=== PATIENT | female | born 1980 | race Caucasian/White ===

== ENCOUNTER 2016-10-31 14:04 | Day surgery (SDC) | payer MEDICAID ==
--- NOTE | 2016-10-24 09:33 | EKG REPORT ---
SEVERITY:- NORMAL ECG - SINUS RHYTHM : Confirmed by: Corinne Mensah 24-Oct-2016 09:32:41
[2016-10-24 11:01] LABS: ABSOLUTE EOSINOPHILS # (AUTO) 0.1 10^3/uL (0.0-0.6); ABSOLUTE LYMPHOCYTES (AUTO) 1.2 10^3/uL (0.5-4.7); ABSOLUTE MONOCYTES (AUTO) 0.6 10^3/uL (0.1-1.4); ABSOLUTE NEUT (AUTO) 4.3 10^3/uL (1.7-8.2); BASOPHILS % (AUTO) 0.7 % (0-2); HEMATOCRIT 37.1 % (36.0-47.0); HEMOGLOBIN 11.8 g/dL (12.0-15.5); HGB HCT DIFFERENCE -1.7; LYMPHOCYTES % (AUTO) 19.6 % (13-45); MEAN CORPUSCULAR HGB CONC 31.9 g/dL (32.0-36.0); MEAN CORPUSCULAR VOLUME 85 fl (80-97); MONOCYTES % (AUTO) 9.5 % (3-13); RED BLOOD COUNT 4.37 10^6/uL (3.72-5.28); RED CELL DISTRIBUTION WIDTH 17.6 % (11.5-14.0); SEGMENTED NEUTROPHILS % (AUTO) 69.2 % (42-78); WHITE BLOOD COUNT 6.2 10^3/uL (4.0-10.5)
[2016-10-24 11:18] LABS: APPEARANCE,URINE SLIGHTLY-CLOUDY; BILIRUBIN,URINE NEGATIVE (NEGATIVE); GLUCOSE, URINE NEGATIVE (NEGATIVE); KETONES,URINE NEGATIVE (NEGATIVE); LEUKOCYTE ESTERASE,URINE NEGATIVE (NEGATIVE); NITRITE,URINE NEGATIVE (NEGATIVE); PROTEIN,URINE NEGATIVE (NEGATIVE); URINE SPECIFIC GRAVITY 1.023; UROBILINOGEN,URINE NEGATIVE mg/dL (<2.0)
[2016-10-24 11:32] LABS: ANION GAP 14 (5-19); BLOOD UREA NITROGEN 18 mg/dL (7-20); CALCIUM 9.6 mg/dL (8.4-10.2); CARBON DIOXIDE 24 mmol/L (22-30); CHLORIDE 104 mmol/L (98-107); CREATININE RESULT 0.85 mg/dL (0.52-1.25); GLUCOSE 96 mg/dL (75-110); SODIUM 141.6 mmol/L (137-145)
[~2016-10-31 14:04] MED LIST: CEFAZOLIN 2 GM/D5W RTU 2 GM/50 ML RTUPB IV PRN; CEFAZOLIN INJ 1 GM VIAL IV PRN; DEXAMETHASONE SOD PHOSPHATE INJ 4 MG/1 ML VIAL ONE; GLYCOPYRROLATE INJ 0.4 MG/2 ML VIAL ONE; LACTATED RINGERS 1000 ML IV PRN; LIDOCAINE 0.5% INJ-PF (5 MG/ML) 50 ML SDV SUBCUT PRN; LIDOCAINE 2% INJ-PF (20 MG/ML) 10 ML AMPUL ONE; METOCLOPRAMIDE HCL INJ/PF 10 MG/2 ML SDV ONE; ONDANSETRON HCL INJ/PF 4 MG/2 ML SDV ONE
[2016-10-31] MEDS ORDERED: BUPIVACAINE HCL 0.25 % INJ/PF (2.5 MG/1 ML) 30 ML VIAL ONE (15:05)
[2016-10-31] MEDS ORDERED: FENTANYL CITRATE INJ/PF 250 MCG/5 ML AMPULE ONE (15:26)
[2016-10-31] MEDS ORDERED: MIDAZOLAM 2 MG/2 ML INJ ONE (15:26)
[2016-10-31] MEDS ORDERED: PROPOFOL INJ 200 MG/20 ML VIAL IV ONE (15:27)
[2016-10-31] MEDS ORDERED: ACETAMINOPHEN 100 ML IV ONE (15:27)
--- NOTE | 2016-10-31 16:34 | PDOC DISCHARGE SUMMARY ---
Discharge Summary (SDC) - Discharge Final Diagnosis: Excision ganglion cyst left foot Date of Surgery: 10/31/16 Discharge Date: 10/31/16 Condition: Good Treatment or Instructions: Keep the dressing dry clean and intact for 4 days then removed. Okay to shower once dressing removed. No soaking or bathing of the left foot. Weight-bear as tolerated. Follow-up in the office in 2 weeks. Prescriptions: Tramadol HCl 50 mg PO BID PRN #20 tablet PRN Reason: For Pain Discharge Diet: As Tolerated Respiratory Treatments at Home: Deep Breathing/Coughing Discharge Activity: Keep Legs Elevated, No Lifting/Push/Pulling, Slowly Increase Activity Home Care Assistance: None Needed Report the Following to Your Physician Immediately: Shortness of Breath, Nausea , Vomiting, Increase in Pain, Fever over 101 Degrees, Unusual Bleeding, Redness , Warmth, Increased Soreness, Drainage-Yellow, Drainage-Green, Drainage-Foul Smelling
[2016-10-31] MEDS ORDERED: TRAMADOL HCL 50 MG TABLET PO PRN (16:42)
[2016-10-31 18:09] VITALS: BP 141/97
--- NOTE | 2016-11-07 14:57 | Operative Report ---
Operative Report DATE OF SURGERY: 10/31/16 PREOPERATIVE DIAGNOSIS: Symptomatic ganglion cyst left foot POSTOPERATIVE DIAGNOSIS: Same OPERATION: Excision ganglion cyst of left foot SURGEON: KAMRAN MCCORMICK ANESTHESIA: GA TISSUE REMOVED OR ALTERED: Ganglion cyst left foot COMPLICATIONS: None ESTIMATED BLOOD LOSS: 5 mL INTRAOPERATIVE FINDINGS: As above PROCEDURE: Patient was brought to the operating room and successfully induced and sedated and intubated in the supine position left foot and ankle and was prepped and draped in a normal sterile surgical fashion. A tourniquet had been applied in her thigh prior to doing this. She was prepped and draped in a normal sterile surgical fashion and then timeout was done identifying the left medial calcaneal cyst as the mass to be removed and the correct site. Esmarch was used to exsanguinate the extremity and the tourniquet was inflated at 300 mmHg. A 1 inch incision horizontally was done over the palpable mass on the cyst on the calcaneus. Skin hooks were used for retraction and then Metzenbaum scissors was used to spread expose the cyst better. I perforated the cyst and ganglion fluid deflated the cyst. I was able still to delineate the cyst and remove it almost in its entirety. This was sent to pathology for evaluation. I used a rongeur to make sure that there was no remaining cyst adjacent to the calcaneus. I used 3-0 nylon then to close my wound after using bulb irrigation to clean the wound. I placed a bulky dressing 4 x 4 dressing and overwrapped it with a soft roll and Miquel bandage. Tourniquet was deflated and the patient with a was extubated and sent to PACU in stable condition.
== END 2016-10-31 18:05 | disposition home or self-care (01) ==
LOC: OROUT 14:04
PROVIDERS: ATTEND Orthopaedic Surgery
PROC: 0SBJ0ZZ Excision of Left Tarsal Joint, Open Approach (ICD-10-PCS; principal; 2016-10-31 15:00)
DX: M67.472 Ganglion, left ankle and foot (principal); F17.210 Nicotine dependence, cigarettes, uncomplicated; Z88.2 Allergy status to sulfonamides
CPT/HCPCS: 93005; 36415; 85025; 81025; 80048; 81001; 88304 ×2; 71020; 93010; 28090; J2250; J1100; J3010; J3490 ×2; J2765; J2405; S0020; J2704; J0690; J0131; 1470

== ENCOUNTER 2017-04-21 11:57 | Emergency (ER) | payer MEDICAID ==
[2017-04-21 14:14] LABS: APPEARANCE,URINE CLEAR; BILIRUBIN,URINE NEGATIVE (NEGATIVE); GLUCOSE, URINE NEGATIVE (NEGATIVE); KETONES,URINE NEGATIVE (NEGATIVE); LEUKOCYTE ESTERASE,URINE NEGATIVE (NEGATIVE); NITRITE,URINE NEGATIVE (NEGATIVE); PROTEIN,URINE NEGATIVE (NEGATIVE); URINE SPECIFIC GRAVITY 1.008; UROBILINOGEN,URINE NEGATIVE mg/dL (<2.0)
--- NOTE | 2017-04-21 14:24 | ER Document Report ---
HPI - HPI Patient complains to provider of: Positive test and vaginal bleeding Onset: Other Onset/Duration: Sudden Quality of pain: Cramping Severity: Mild Pain Level: 2 Context: Patient states she had a positive test at home 3 days ago. Bleeding and cramps began this morning. Has passed a couple of small clots. States last menstrual period was 03/17/2017, lasting 3 days. She states this is not her normal cycle. Associated Symptoms: None Exacerbated by: Denies Relieved by: Denies Similar symptoms previously: No Recently seen / treated by doctor: No - ROS ROS below otherwise negative: Yes Systems Reviewed and Negative: Yes All other systems reviewed and negative - CONSTITUTIONAL Constitutional: DENIES: Fever - EENT EENT: DENIES: Congestion - NEURO Neurology: DENIES: Headache - CARDIOVASCULAR Cardiovascular: DENIES: Chest pain - RESPIRATORY Respiratory: DENIES: Trouble Breathing - GASTROINTESTINAL Gastrointestinal: REPORTS: Abdominal Pain - Cramping. DENIES: Nausea, Patient vomiting - URINARY Urinary: REPORTS: Dysuria - REPRODUCTIVE Reproductive: REPORTS: :, Abnormal bleeding / discharge - MUSCULOSKELETAL Musculoskeletal: DENIES: Extremity pain - DERM Skin Color: Normal Past Medical History - General Information source: Patient - Social History Smoking Status: Current Every Day Smoker Cigarette use (# per day): Yes Frequency of alcohol use: Occasional Drug Abuse: None Lives with: Spouse/Significant other Family History: Reviewed & Not Pertinent Neurological Medical History: Reports: Hx Migraine Renal/ Medical History: Reports: Hx Ovarian Cysts Musculoskeltal Medical History: Reports Hx Arthritis - hands Past Surgical History: Reports: Hx Orthopedic Surgery - Immunizations Immunizations up to date: Yes Hx Diphtheria, Pertussis, Tetanus Vaccination: Yes Vertical Provider Document - CONSTITUTIONAL Agree With Documented VS: Yes Exam Limitations: No Limitations General Appearance: WD/WN, No Apparent Distress - INFECTION CONTROL TRAVEL OUTSIDE OF THE [place] IN LAST 30 DAYS: No - HEENT HEENT: Atraumatic, Normocephalic - RESPIRATORY Respiratory: Breath Sounds Normal, No Respiratory Distress O2 Sat by Pulse Oximetry: 100 - CARDIOVASCULAR Cardiovascular: Regular Rate, Regular Rhythm - GI/ABDOMEN Gastrointestinal: Abdomen Soft, Abdomen Tender - Across lower abdomen, Normal Bowel Sounds - MUSCULOSKELETAL/EXTREMETIES Musculoskeletal/Extremeties: MAEW - NEURO Level of Consciousness: Awake, Alert, Appropriate - DERM Integumentary: Warm, Dry Course - Re-evaluation Re-evalutation: 04/21/17 19:21 Results of labs and ultrasound were discussed with patient and spouse. Patient instructed to return in 48 hours for repeat quant level. - Vital Signs Vital signs: Temp Pulse Resp BP Pulse Ox 98.9 F 86 136/88 H 100 04/21/17 12:08 04/21/17 12:08 04/21/17 12:08 04/21/17 12:08 - Laboratory Result Diagrams: 04/21/17 14:45 04/21/17 14:45 Laboratory results interpreted by me: 04/21/17 12:59 Urine Blood LARGE H Discharge - Discharge Clinical Impression: Vaginal bleeding Condition: Good Disposition: HOME, SELF-CARE Additional Instructions: Tylenol as needed for lower abdominal pain/cramping Return in 48 hours for repeat quant level, earlier if any problems Follow-up with your primary care physician tomorrow for possible VIRTUALIZATION ENGINEER referral Forms: Follow-Up Laboratory Testing, Return to Work
[2017-04-21 15:02] LABS: ABSOLUTE EOSINOPHILS # (AUTO) 0.2 10^3/uL (0.0-0.6); ABSOLUTE LYMPHOCYTES (AUTO) 1.7 10^3/uL (0.5-4.7); ABSOLUTE MONOCYTES (AUTO) 0.5 10^3/uL (0.1-1.4); ABSOLUTE NEUT (AUTO) 5.2 10^3/uL (1.7-8.2); BASOPHILS % (AUTO) 0.3 % (0-2); EOSINOPHILS % (AUTO) 2.5 % (0-6); HEMOGLOBIN 12.3 g/dL (12.0-15.5); HGB HCT DIFFERENCE -0.1; LYMPHOCYTES % (AUTO) 22.6 % (13-45); MEAN CORPUSCULAR HEMOGLOBIN 28.1 pg (27.0-33.4); MEAN CORPUSCULAR HGB CONC 33.3 g/dL (32.0-36.0); MEAN CORPUSCULAR VOLUME 85 fl (80-97); MONOCYTES % (AUTO) 6.4 % (3-13); RED BLOOD COUNT 4.37 10^6/uL (3.72-5.28); RED CELL DISTRIBUTION WIDTH 16.4 % (11.5-14.0); SEGMENTED NEUTROPHILS % (AUTO) 68.2 % (42-78); WHITE BLOOD COUNT 7.6 10^3/uL (4.0-10.5)
[2017-04-21 15:28] LABS: ALANINE AMINOTRANSFERASE 35 U/L (9-52); ALBUMIN 4.1 g/dL (3.5-5.0); ALKALINE PHOSPHATASE 68 U/L (38-126); ANION GAP 9 (5-19); ASPARTATE AMINO TRANSFERASE 24 U/L (14-36); BILIRUBIN,DIRECT 0.3 mg/dL (0.0-0.4); BILIRUBIN,TOTAL 0.4 mg/dL (0.2-1.3); BLOOD UREA NITROGEN 9 mg/dL (7-20); CALCIUM 9.3 mg/dL (8.4-10.2); CARBON DIOXIDE 26 mmol/L (22-30); CHLORIDE 106 mmol/L (98-107); CREATININE RESULT 0.85 mg/dL (0.52-1.25); GLUCOSE 99 mg/dL (75-110); POTASSIUM 4.2 mmol/L (3.6-5.0); SODIUM 140.8 mmol/L (137-145)
--- NOTE | 2017-04-21 17:53 | RADIOLOGY REPORT (SQ) ---
EXAM DESCRIPTION: U/S NON-OB PELVIS TV W/O DOP COMPLETED DATE/TIME: 04/21/2017 5:44 pm REASON FOR STUDY: + preg test home, low quant level, vag bleeding COMPARISON: None. TECHNIQUE: Dynamic and static grayscale images acquired of the pelvis via transvaginal approach and recorded on PACS. Additional selected color Doppler and spectral images recorded. LIMITATIONS: Study is limited due to overlying bowel gas. FINDINGS: UTERUS: Contour normal. No mass. ENDOMETRIAL STRIPE: No focal or generalized thickening. No masses. CERVIX: No nabothian cysts. RIGHT OVARY: Right ovary was not visualized due to overlying bowel gas. LEFT OVARY: Left ovary was not visualized due to overlying bowel gas. FREE FLUID: None noted. OTHER: No other significant finding. MEASUREMENTS: UTERUS: 9.5 x 4.5 x 3.9 cm ENDOMETRIAL STRIPE: 6.6 mm RIGHT OVARY: Not visualized. LEFT OVARY: Not visualized. IMPRESSION: Limited study as noted above. No significant pelvic abnormalities were identified. TECHNICAL DOCUMENTATION: JOB ID: [id number] [facility]- All Rights Reserved
[2017-04-21 18:14] VITALS: BP 132/86
== END 2017-04-21 18:15 | disposition home or self-care (01) ==
LOC: ER 11:57
DX: O20.9 Hemorrhage in early pregnancy, unspecified (principal); O99.331 Smoking (tobacco) complicating pregnancy, first trimester; F17.210 Nicotine dependence, cigarettes, uncomplicated; Z3A.01 Less than 8 weeks gestation of pregnancy; Z87.42 Personal history of other diseases of the female genital tract
CPT/HCPCS: 36415; 76830; 80053; 81001; 84702; 85025; 99284

== ENCOUNTER → 2017-09-03 | Outpatient (CLI) | payer SELFPAY ==
--- NOTE | 2017-09-03 14:34 | RADIOLOGY REPORT (SQ) ---
EXAM DESCRIPTION: U/S OB 14+ TRNABD 1GES W/O DOP COMPLETED DATE/TIME: 09/03/2017 1:42 pm REASON FOR STUDY: Z34.82 ENCOUNTER FOR SUPRVSN OF NORMAL , SECOND TRIMESTER Z34.82 ENCOUNT ER FOR SUPRVSN OF NORMAL , SECOND TRI COMPARISON: None. TECHNIQUE: Transabdominal static and realtime grayscale images acquired of the pelvis. Additional se lected spectral and color Doppler images recorded. All images stored on PACs. LIMITATIONS: Limited visualization of the anatomy due to small size. FINDINGS: FETUS: EGA: 15 week 5 day. VIKRAM: 02/20/2018. FHR: 169 beats per minute. RENATO: Adequate amount. PLACENTA: Anterior. PRESENTATION: Cephalic. CERVICAL LENGTH: 2.7 cm. Closed. UTERUS: No masses. RIGHT ADNEXA: Ovary not identified. No adnexal free fluid. No adnexal masses. LEFT ADNEXA: Ovary not identified. No adnexal free fluid. No adnexal masses. FREE FLUID: None. OTHER: No other significant finding. IMPRESSION: LIVING INTRAUTERINE . ESTIMATED GESTATIONAL AGE:15 WEEK 5 DAY. Trimester of : Second trimester - 13 weeks 1 day to 27 weeks 6 days. TECHNICAL DOCUMENTATION: JOB ID: [id number] [employer]- All Rights Reserved Reading location - IP/workstation name: [email or web address]
== END ==
LOC: RAD 14:21
PROVIDERS: ATTEND Nurse Practitioner Women's Health
DX: Z34.82 Encounter for supervision of other normal pregnancy, second trimester (principal)
CPT/HCPCS: 76805

== ENCOUNTER 2017-10-23 22:18 | Outpatient (CLI) | payer MEDICAID ==
[2017-10-23 23:02] LABS: APPEARANCE,URINE SLIGHTLY-CLOUDY; BILIRUBIN,URINE NEGATIVE (NEGATIVE); COLOR,URINE YELLOW; GLUCOSE, URINE NEGATIVE (NEGATIVE); KETONES,URINE NEGATIVE (NEGATIVE); LEUKOCYTE ESTERASE,URINE NEGATIVE (NEGATIVE); NITRITE,URINE NEGATIVE (NEGATIVE); PROTEIN,URINE NEGATIVE (NEGATIVE); URINE SPECIFIC GRAVITY 1.023; UROBILINOGEN,URINE NEGATIVE mg/dL (<2.0)
[2017-10-23 23:17] LABS: URINE AMPHETAMINES SCREEN NEGATIVE; URINE BARBITURATES SCREEN NEGATIVE; URINE BENZODIAZEPINES SCREEN NEGATIVE; URINE COCAINE SCREEN NEGATIVE; URINE MARIJUANA (THC) SCREEN NEGATIVE; URINE METHADONE SCREEN NEGATIVE; URINE PHENCYCLIDINE SCREEN NEGATIVE
== END 2017-10-24 | disposition home or self-care (01) ==
LOC: LC 22:18
PROVIDERS: ATTEND Obstetrics & Gynecology Gynecology
PROC: 4A1HXCZ Monitoring of Products of Conception, Cardiac Rate, External Approach (ICD-10-PCS; principal; 2017-10-23)
DX: O99.612 Diseases of the digestive system complicating pregnancy, second trimester (principal); K52.9 Noninfective gastroenteritis and colitis, unspecified; O09.522 Supervision of elderly multigravida, second trimester; Z3A.22 22 weeks gestation of pregnancy
CPT/HCPCS: 80307; 81001

== ENCOUNTER 2018-01-04 09:52 | Outpatient (CLI) | payer MEDICAID ==
--- NOTE | 2018-01-04 10:56 | Non Stress Test Report ---
Non Stress Test Datetime Report Generated by CPN: 01/04/2018 10:56 DEMOGRAPHIC EGA NST: 32.5 INDICATION Indication for Study: Diabetes Mellitus; Ordered by Provider VITAL SIGNS Temperature - NST: 98.0 Pulse - NST: 94 RESP - NST: 16 NBPSYS NST: 112 NBPDIA NST: 69 MONITORING Monitor Explained: Monitor Explained; Test Explained; Patient Verbalized Understanding Time on Monitor: 01/04/2018 10:02 Time off Monitor: 01/04/2018 10:53 NST Duration: 51 NST INTERVENTIONS NST Interventions: PO Hydration; Reposition Patient Physician Notified NST: DR VANCE REVIEWED STRIP BABY A: [id number] BABY A Movement : Present Contraction Frequency : NONE FHR Baseline : 145 Accelerations : 15X15 Decelerations : None Variability : Moderate 6-25bpm NST Review: Meets Criteria for Reactive NST NST Review and Verified By : MISTY MILLARD RN NST Results: Reactive NST REPORT Report Trigger: Send Report
== END 2018-01-04 11:00 | disposition home or self-care (01) ==
LOC: LC 09:52 → EDSTATUS 10:18 → LC 11:00
PROVIDERS: ATTEND Obstetrics & Gynecology
PROC: 4A1HXCZ Monitoring of Products of Conception, Cardiac Rate, External Approach (ICD-10-PCS; principal; 2018-01-04)
DX: O24.913 Unspecified diabetes mellitus in pregnancy, third trimester (principal); Z79.4 Long term (current) use of insulin; O09.523 Supervision of elderly multigravida, third trimester; Z3A.32 32 weeks gestation of pregnancy
CPT/HCPCS: 59025; 82962

== ENCOUNTER 2018-01-07 11:20 | Outpatient (CLI) | payer MEDICAID ==
--- NOTE | 2018-01-07 12:07 | Non Stress Test Report ---
Non Stress Test Datetime Report Generated by CPN: 01/07/2018 12:06 DEMOGRAPHIC EGA NST: 33.1 INDICATION Indication for Study: Ordered by Provider MONITORING Monitor Explained: Monitor Explained; Test Explained; Patient Verbalized Understanding Time on Monitor: 01/07/2018 11:33 Time off Monitor: 01/07/2018 11:55 NST Duration: 22 NST INTERVENTIONS NST Interventions: PO Hydration; Reposition Patient Physician Notified NST: Dr Nelson BABY A: [id number] BABY A Movement : Present Contraction Frequency : 0 FHR Baseline : 135 Accelerations : 15X15 Decelerations : None Variability : Moderate 6-25bpm NST Review: Meets Criteria for Reactive NST NST Review and Verified By : MISTY MILLARD RN NSTrevor Results: Reactive NST REPORT Report Trigger: Send Report
== END 2018-01-07 11:55 | disposition home or self-care (01) ==
LOC: LC 11:20
PROVIDERS: ATTEND Student in an Organized Health Care Education/Training Program
PROC: 4A1HXCZ Monitoring of Products of Conception, Cardiac Rate, External Approach (ICD-10-PCS; principal; 2018-01-07)
DX: O24.913 Unspecified diabetes mellitus in pregnancy, third trimester (principal); Z79.4 Long term (current) use of insulin; O09.523 Supervision of elderly multigravida, third trimester; Z3A.33 33 weeks gestation of pregnancy
CPT/HCPCS: 59025

== ENCOUNTER 2018-01-11 10:32 | Outpatient (CLI) | payer MEDICAID | END 2018-01-11 11:10 | disposition home or self-care (01) | LOC: LC 10:32 | PROVIDERS: ATTEND Obstetrics & Gynecology | PROC: 4A1HXCZ Monitoring of Products of Conception, Cardiac Rate, External Approach (ICD-10-PCS; principal; 2018-01-11) | DX: O24.913 Unspecified diabetes mellitus in pregnancy, third trimester (principal); Z79.4 Long term (current) use of insulin; O09.523 Supervision of elderly multigravida, third trimester; Z3A.33 33 weeks gestation of pregnancy | CPT/HCPCS: 59025 ==

== ENCOUNTER 2018-01-30 12:52 | Outpatient (CLI) | payer MEDICAID ==
--- NOTE | 2018-01-30 13:05 | Non Stress Test Report ---
Non Stress Test Datetime Report Generated by CPN: 01/30/2018 13:04 DEMOGRAPHIC EGA NST: 33.5 INDICATION Indication for Study: Diabetes Mellitus; Ordered by Provider VITAL SIGNS Temperature - NST: 98.4 Pulse - NST: 77 RESP - NST: 16 NBPSYS NST: 105 NBPDIA NST: 66 MONITORING Monitor Explained: Monitor Explained; Test Explained; Patient Verbalized Understanding Time on Monitor: 01/11/2018 10:40 Time off Monitor: 01/11/2018 11:08 NST Duration: 28 NST INTERVENTIONS NST Interventions: PO Hydration; Reposition Patient Physician Notified NST: J CALVILLO, CNM BABY A: [id number] BABY A Movement : Present Contraction Frequency : NONE FHR Baseline : 140 Accelerations : 15X15 Decelerations : None Variability : Moderate 6-25bpm NST Review: Meets Criteria for Reactive NST NST Review and Verified By : Derek Smith RN NST Results: Reactive NST REPORT Report Trigger: Send Report
[2018-01-30 14:45] LABS: URINE AMPHETAMINES SCREEN NEGATIVE; URINE BARBITURATES SCREEN NEGATIVE; URINE BENZODIAZEPINES SCREEN NEGATIVE; URINE COCAINE SCREEN NEGATIVE; URINE MARIJUANA (THC) SCREEN NEGATIVE; URINE METHADONE SCREEN NEGATIVE; URINE PHENCYCLIDINE SCREEN NEGATIVE
[2018-01-30 15:57] LABS: APPEARANCE,URINE CLOUDY; BILIRUBIN,URINE NEGATIVE (NEGATIVE); COLOR,URINE YELLOW; GLUCOSE, URINE NEGATIVE (NEGATIVE); KETONES,URINE NEGATIVE (NEGATIVE); LEUKOCYTE ESTERASE,URINE TRACE (NEGATIVE); NITRITE,URINE NEGATIVE (NEGATIVE); PROTEIN,URINE NEGATIVE (NEGATIVE); URINE SPECIFIC GRAVITY 1.008; UROBILINOGEN,URINE NEGATIVE mg/dL (<2.0)
== END 2018-01-30 16:22 | disposition home or self-care (01) ==
LOC: LC 12:52
PROVIDERS: ATTEND Obstetrics & Gynecology
PROC: 4A1HXCZ Monitoring of Products of Conception, Cardiac Rate, External Approach (ICD-10-PCS; principal; 2018-01-30)
DX: O47.1 False labor at or after 37 completed weeks of gestation (principal); O09.523 Supervision of elderly multigravida, third trimester; O99.333 Smoking (tobacco) complicating pregnancy, third trimester; Z3A.36 36 weeks gestation of pregnancy
CPT/HCPCS: 59025; 80307; 81005

== ENCOUNTER 2018-02-08 18:58 | Inpatient (IN) | payer MEDICAID ==
[2018-02-08] MEDS ORDERED: ZOLPIDEM TARTRATE 5 MG TABLET PO PRN (19:33)
[2018-02-08] MEDS ORDERED: MAG HYDROX/AL HYDROX/SIMETH SUSP 30 ML UDCUP PO PRN (19:33)
[2018-02-08] MEDS ORDERED: RINGERS SOLUTION,LACTATED 1,000 ML IV PRN (19:33)
[2018-02-08] MEDS ORDERED: ACETAMINOPHEN 325 MG TABLET PO PRN (19:33)
[2018-02-08] MEDS ORDERED: RINGERS SOLUTION,LACTATED 1,000 ML IV ONE (19:33)
[2018-02-08] MEDS ORDERED: DINOPROSTONE 10 MG VAGINAL INSERT.SR PV ONE (19:33)
[2018-02-08 19:58] LABS: HEMATOCRIT 30.5 % (36.0-47.0); MEAN CORPUSCULAR HEMOGLOBIN 25.7 pg (27.0-33.4); MEAN CORPUSCULAR VOLUME 78 fl (80-97); PLATELET COUNT 229 10^3/uL (150-450); RED CELL DISTRIBUTION WIDTH 16.4 % (11.5-14.0); WHITE BLOOD COUNT 14.5 10^3/uL (4.0-10.5)
[2018-02-08] MEDS ORDERED: DINOPROSTONE 10 MG VAGINAL INSERT.SR ONE (20:53)
[2018-02-08 21:38] LABS: URINE AMPHETAMINES SCREEN NEGATIVE; URINE BARBITURATES SCREEN NEGATIVE; URINE BENZODIAZEPINES SCREEN NEGATIVE; URINE COCAINE SCREEN NEGATIVE; URINE MARIJUANA (THC) SCREEN NEGATIVE; URINE METHADONE SCREEN NEGATIVE; URINE PHENCYCLIDINE SCREEN NEGATIVE
[2018-02-08] MEDS ORDERED: INSULIN NPH (ISOPHANE), HUMAN 100 UNIT/ML 3 ML ONE (23:42)
[2018-02-08] MEDS: RINGERS SOLUTION,LACTATED 1,000 ML IV PRN (23:54)
[2018-02-09] MEDS: RINGERS SOLUTION,LACTATED 1,000 ML IV PRN (02:51)
--- NOTE | 2018-02-09 05:32 | Admission Physical ---
Datetime Report Generated by CPN: 02/09/2018 05:32 CURRENT ADMISSION Chief Complaint: Sent from OB Office for Evaluation and Treatment - Please Specify Chief Complaint Other: Sent from MFM office due to Elevated Dopplers, IUGR Indication for Induction: IUGR Admit Impression : Term, Intrauterine ; No Active Labor; Intact Membranes; Induction of Labor Admit Plan: Admit to Unit; Initiate Labor Induction Protocol ALLERGIES Medication Allergies: Yes Medication Allergies: Sulfa (Sulfonamide Antibiotics)/as child (01/30/2018); ibuprofen/SV/dizzy (01/30/2018); latex (01/30/2018) OBSTETRICAL HISTORY EDC: 02/24/2018 00:00 : 4 Para: 2 Term: 2 : 1 SAB: 0 IAB: 0 Ectopic: 0 Livin Cesareans: 0 VBACs: 0 Multiple Births: 0 Gestational Diabetes: Yes Rh Sensitization: No Incompetent Cervix: No ZANA: No Infertility: No ART Treatment: No Uterine Anomaly: No IUGR: Yes Hx Previous C/S: No Macrosomia: No Hx Loss/Stillborn: No PIH: No Hx : No Placenta Previa/Abruption: No Depression/PP Depression: No PTL/PROM: No Post Hemorrhage: No Current Procedures: Ultrasound; NST; Doppler Flow Study Obstetrical History Comments: g1 - 06/2009 41 weeks female epidural g2- 2002 22 weeks elective termination no fluid/ urinary anomaly g3 - 2005 40 weeks epidural male epidural g4 - current - A2GDM on insulin, IUGR, AMA, smoker, hypothyroid SEE RECORDS Alcohol: No Marijuana : No Cocaine: No Other Illicit Drugs: No Cigarettes: Current Everyday Smoker. 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: No Heart Disease: No Hosp/Surgery: Yes Autoimmune Disorder: No Anesthetic Complications: No Kidney Disease: No Abnormal Pap Smear: No Neuro/Epilepsy: No Psychiatric Disorders: No Other Medical Diseases: No Hepatitis/Liver Disease: No Significant Family History: No Varicosities/Phlebitis: No Trauma/Violence : No Thyroid Dysfunction: Yes Medical History Comments: gdm - insulin dependent, smoker, AMA, hypothyroid INFECTIOUS HISTORY Gonorrhea: No Genital Herpes: No Chlamydia: No Tuberculosis: No Syphilis: No Hepatitis: No HIV/AIDS Exposure: No Rash or Viral Illness: No HPV: No PHYSICAL EXAM General: Normal HEENT: Normal Neurologic: Normal Thyroid: Deferred Heart: Normal Lungs: Normal Breast: Deferred Back: Normal Abdomen: Normal Genitourinary Exam: Normal Extremities: Normal DTRs: Normal Pelvic Type: Adequate Vital Signs: Reviewed VAGINAL EXAM Dilatation: 0 Effacement: th Station: hi Contraction Comments: rare MEMBRANES Membranes: Intact FETUS A EGA: 37.6 Monitoring: External US FHR- Baseline: 155 Variability: Moderate 6-25bpm Accelerations: 15X15 Decelerations: None FHR Category: Category I Estimated Weight (gm): 2326 Presentation: Vertex Admit Comment: 37yo at 37+6ega admitted last evening from [facility] office due to IUGR with elevated cord dopplers and head sparing. c/b smoking and A2GDM on NPH [address] Wilson recommended her delivery in next 24 hours. unfavorable cervix - cervidil placed. Synthroid for hypothyroidism. Rh negative. GBS negative. anticipate . PLANS FOR LABOR AND DELIVERY Labor and Delivery: None Pain Management: Epidural Feeding Preference: Breast Benefit of Breast Feed Discussed: Yes Circumcision: N/A INFORMED CONSENT Informed Consent Obtained: Vaginal Delivery; Induction of Labor; Risks, Benefits and Alternatives Discussed Signature: with User ID: [email or web address]
--- NOTE | 2018-02-09 10:34 | L&D Progress Notes ---
PROGRESS NOTES Datetime Report Generated by CPN: 02/09/2018 10:34 PROGRESS NOTE Impression: Reassuring Heart Rate Procedures- Other: IOL for GDM-A2, cervidil removed Plan: Continue Present Management; Induction; Cervical Ripening Informed Consent Obtained: Vaginal Delivery Informed Consent Obtained: Vaginal Delivery; Induction of Labor; Risks, Benefits and Alternatives Discussed Vital Signs : Reviewed; Within Normal Limits VAGINAL EXAM Dilatation: 1 Dilatation: 0 Effacement: 50 Effacement: Station: -2 Station: vt Contractions: occasional, mild with irritability Contractions: rare MEMBRANES Membranes: Intact Membranes: Intact FETUS A Monitoring: External US Variability: Moderate 6-25bpm Accelerations: 15X15 Decelerations: None FHR Category: Category I Estimated Weight (gm): 2326 Presentation: Vertex SIGNATURE SIGNATURE: [id number];14,[id number];13,[id number] SIGNATURE: 13,[id number];14,[id number] SIGNATURE: 14,[id number] SIGNATURE: 14,[id number] SIGNATURE: 14,[id number] Assignment: Kandi Brody MD Signature: with User ID: [email or web address] : with User ID: [email or web address]
[2018-02-09] MEDS ORDERED: MISOPROSTOL 0.1 MG TABLET ONE (11:04)
[2018-02-09] MEDS ORDERED: MISOPROSTOL 0.2 MG TABLET ONE (11:04)
[2018-02-09] MEDS ORDERED: OXYTOCIN/NORMAL SALINE 20 UNIT/1,000 ML RTUINJ ONE (11:05)
[2018-02-09] MEDS ORDERED: LIDOCAINE 1% INJ-PF (10 MG/ML) 30 ML SDV ONE (11:05)
[2018-02-09] MEDS: MISOPROSTOL 0.1 MG TABLET PV SCH (11:15)
[2018-02-09] MEDS: MISOPROSTOL 0.1 MG TABLET PO SCH (11:15)
[2018-02-09] MEDS ORDERED: OXYTOCIN/NORMAL SALINE 20 UNIT/1,000 ML RTUINJ IV PRN ×2 (15:18→19:00)
--- NOTE | 2018-02-09 15:41 | L&D Progress Notes ---
PROGRESS NOTES Datetime Report Generated by CPN: 02/09/2018 15:40 PROGRESS NOTE Impression: Reactive Non Stress Test Procedures: Sterile Vag Exam Plan: Continue Present Management; Induction Vital Signs : Reviewed Comment: s/p Cytotec, Will start Pitocin, pt plans an epidural, then AROM once pt is comfortable. Dr Ronn aware of pt status VAGINAL EXAM Dilatation: 3 Effacement: 70 Station: -2 Contractions: q2-4 MEMBRANES Membranes: Intact FETUS A FHR - Baseline: 130 Variability: Moderate 6-25bpm Decelerations: None FHR Category: Category I SIGNATURE SIGNATURE: [id number];14,[id number];10,[id number] Assignment: Kandi Brody MD Signature: with User ID: [email or web address] : with User ID: [email or web address]
[2018-02-09] MEDS ORDERED: FENTANYL CITRATE INJ/PF 100 MCG/2 ML AMPUL ONE (17:13)
[2018-02-09] MEDS ORDERED: EPHEDRINE SULFATE INJ 50 MG/1 ML AMPULE ONE (17:14)
[2018-02-09] MEDS ORDERED: BUPIVACAINE HCL 0.25 % INJ/PF (2.5 MG/1 ML) 30 ML VIAL ONE (17:14)
[2018-02-09] MEDS ORDERED: PHENYLEPHRINE HCL INJ/PF 10 MG/1 ML SDV ONE (17:14)
[2018-02-09] MEDS ORDERED: LIDOCAINE 1.5%/EPINEPHRINE INJ-PF 30 ML SDV ONE (17:15)
[2018-02-09] MEDS ORDERED: FENTANYL/BUPIVACAINE/NS/PF 200 MCG/100 ML RTUINJ EPI ONE (17:15)
[2018-02-09] MEDS ORDERED: GLYCERIN/WITCH HAZEL LEAF 1 EACH MED..PAD TP PRN (19:00)
[2018-02-09] MEDS ORDERED: MAGNESIUM HYDROXIDE SUSP 30 ML UDCUP PO PRN (19:00)
[2018-02-09] MEDS ORDERED: ACETAMINOPHEN WITH CODEINE #3 TABLET PO PRN ×2 (19:00)
[2018-02-09] MEDS ORDERED: PROMETHAZINE HCL 25 MG TABLET PO PRN (19:00)
[2018-02-09] MEDS ORDERED: DIPHENHYDRAMINE HCL 25 MG CAPSULE PO PRN (19:00)
[2018-02-09] MEDS ORDERED: NA PHOS,M-B/NA PHOS,DI-BA (ADULT) 133 ML ENEMA PR PRN (19:00)
[2018-02-09] MEDS ORDERED: DIPH/PERTUSS(ACELL)/TETANUS VAC/PF 0.5 ML SYR (>=10YO) IM PRN (19:00)
[2018-02-09] MEDS ORDERED: BENZOCAINE/MENTHOL AEROSOL SPRAY 56 ML TOP PRN (19:00)
[2018-02-09] MEDS ORDERED: PSEUDOEPHEDRINE HCL 30 MG TABLET PO PRN (19:00)
[2018-02-09] MEDS ORDERED: ZOLPIDEM TARTRATE 5 MG TABLET PO PRN (19:00)
[2018-02-09] MEDS ORDERED: MEASLES,MUMPS&RUBELLA VACC/PF 0.5 ML VIAL SUBCUT PRN (19:00)
[2018-02-09] MEDS ORDERED: PROMETHAZINE HCL 25 MG SUPP.RECT PR PRN (19:00)
[2018-02-09] MEDS ORDERED: DIBUCAINE 1% OINTMENT 28 GM TP PRN (19:00)
[2018-02-09] MEDS ORDERED: ACETAMINOPHEN 650 MG SUPP.RECT PR PRN (19:00)
[2018-02-09] MEDS ORDERED: PROMETHAZINE HCL INJ 25 MG/1 ML VIAL IV PRN (19:00)
[2018-02-09] MEDS ORDERED: ACETAMINOPHEN 325 MG TABLET ONE (20:47)
--- NOTE | 2018-02-09 20:59 | Delivery Summary ---
Del Sum A-C Datetime Report Generated by CPN: 02/09/2018 20:59 DELIVERY PERSONNEL DELIVERY PERSONNEL: [id number] Delivery Doctor:: Dr. Brody Labor and Delivery Nurse:: Ema Landaverde RNapplication integration specialist Nurse:: NIKKI Vargas Tripe Scraper/S3B MULTI SENSOR OPERATOR: Ayeshagricelda Villareal, S3B MULTI SENSOR OPERATOR II MATERNAL INFORMATION Delivery Anesthesia: Epidural Medications After Delivery: Pitocin Drip 20 Units/1000ml NSS Estimated Blood Loss (ml): 200 Maternal Complications: None LABOR SUMMARY EDC: 02/24/2018 00:00 No. Babies in Womb: 1 Attempted: No Labor Anesthesia: Epidural LABOR INFORMATION Reason for Induction: Intrauterine Growth Retardation Onset of Labor: 02/09/2018 15:16 Complete Dilatation: 02/09/2018 18:20 Cervical Ripening Agents: Cervidil Oxytocin: Induction Group B Beta Strep: negative Antibiotics # of Doses: 0 Antibiotics Time of Last Dose: N/A Name of Antibiotic Given: N/A Steroids Given: None Reason Steroids Not Administered: Not Applicable Other Reason Not Administered: N/A MEMBRANES Membranes Rupture Method: Spontaneous Rupture of Membranes: 02/09/2018 17:00 Length of Rupture (hr): 1.48 Amniotic Fluid Color: Clear Amniotic Fluid Amount: Small Amniotic Fluid Odor: Normal STAGES OF LABOR Stage 1 hr: 3 Stage 1 min: 4 Stage 2 hr: 0 Stage 2 min: 9 Stage 3 hr: 0 Stage 3 min: 6 Total Time in Labor hr: 3 Total Time in Labor min: 19 VAGINAL DELIVERY Episiotomy: None Laceration #1: None Laceration Extension #1: N/A Laceration Repair: Not Applicable CSECTION DELIVERY Primary Indication: N/A Secondary Indication: N/A BABY A INFORMATION Infant Delivery Date/Time: 02/09/2018 18:29 Method of Delivery: Vaginal Born in Route : No : N/A Forceps: N/A Vacuum Extraction: N/A Shoulder Dystocia : No PRESENTATION/POSITION BABY A Presentation: Cephalic Cephalic Presentation: Vertex Vertex Position: Right Occipital Anterior Breech Presentation: N/A PLACENTA INFORMATION BABY A Placenta Delivery Time : 02/09/2018 18:35 Placenta Method of Delivery: Spontaneous Placenta Status: Delivered SCORES BABY A Heart Rate 1 min: >100 bpm Resp Effort 1 min: Good Cry Reflex Irritability 1 min: Cough or Sneeze or Pulls Away Muscle Tone 1 min: Active Motion Color 1 min: Body [place], Extremities Blue Resuscitation Effort 1 min: Tactile Stimulation SCORE 1 MIN: 9 Heart Rate 5 min: >100 bpm Resp Effort 5 min: Good Cry Reflex Irritability 5 min: Cough or Sneeze or Pulls Away Muscle Tone 5 min: Active Motion Color 5 min: Body [place], Extremities Blue Resuscitation Effort 5 min: Tactile Stimulation SCORE 5 MIN: 9 INFANT INFORMATION BABY A Gestational Age at Delivery: 37.6 Gestational Status: Early Term- 37- 38.6 Weeks Infant Outcome : Liveborn Infant Condition : Stable Infant Sex: Female IDENTIFICATION BABY A Verification Date/Time: 02/09/2018 18:56 ID Band Number: [id number] Mother's Name Verified: Yes RN Verifying : Elpidio Petersse and Ema Landaverde, RN WEIGHT/LENGTH BABY A Birthweight (gm): 2270 Weight (lb): 5 Infant Weight (oz): 0 Length (in): 18.00 Infant Length (cm): 45.72 CORD INFORMATION BABY A No. Cord Vessels: 3 Nuchal Cord : Around Neck x1, Loose Cord Blood Taken: Yes-For Eval (Mom's Blood Type - or O+) Suction: None ASSESSMENT BABY A Skin to Skin: Yes BABY B INFORMATION : N/A SIGNATURES Signature: with User ID: [email or web address]
[2018-02-10 07:37] LABS: HEMATOCRIT 29.7 % (36.0-47.0); HEMOGLOBIN 9.6 g/dL (12.0-15.5); MEAN CORPUSCULAR HEMOGLOBIN 25.6 pg (27.0-33.4); MEAN CORPUSCULAR HGB CONC 32.4 g/dL (32.0-36.0); MEAN CORPUSCULAR VOLUME 79 fl (80-97); PLATELET COUNT 190 10^3/uL (150-450); RED BLOOD COUNT 3.76 10^6/uL (3.72-5.28); RED CELL DISTRIBUTION WIDTH 16.3 % (11.5-14.0); WHITE BLOOD COUNT 13.1 10^3/uL (4.0-10.5)
[2018-02-10] MEDS: MISOPROSTOL 0.1 MG TABLET PO SCH (07:57)
[2018-02-10] MEDS: MISOPROSTOL 0.1 MG TABLET PV SCH (07:57)
[2018-02-10] MEDS: FAMOTIDINE 20 MG TABLET PO SCH ×2 (07:58→09:31)
[2018-02-10] MEDS: IBUPROFEN 800 MG TABLET PO SCH ×3 (07:58→13:06)
[2018-02-10] MEDS: LEVOTHYROXINE SODIUM 0.05 MG TABLET PO SCH (08:32)
[2018-02-10] MEDS: FERROUS SULFATE 325 MG TABLET PO SCH ×2 (09:31→18:02)
[2018-02-10] MEDS: DOCUSATE SODIUM 100 MG CAPSULE PO SCH ×2 (09:31→18:02)
[2018-02-10] MEDS: SENNOSIDES/DOCUSATE 8.6-50 MG 1 EACH TABLET PO SCH (09:31)
[2018-02-10] MEDS: PRENATAL VITAMIN W DHA CAPSULE PO SCH (09:31)
[2018-02-10] MEDS ORDERED: LEVOTHYROXINE SODIUM 0.05 MG TABLET PO SCH (10:00)
--- NOTE | 2018-02-10 11:08 | PDOC PROGRESS REPORT ---
Subjective-OB Progress Note for:: 02/10/18 Subjective: Pt doing well, no concerns. She reports light bleeding, reg diet and voiding without difficulty. Physical Exam (OB) Vital Signs: Temp Pulse Resp BP Pulse Ox 98.7 F 66 15 120/83 100 02/10/18 08:00 02/10/18 08:00 02/10/18 08:00 02/10/18 08:00 02/10/18 08:00 Intake & Output 02/09/18 02/10/18 02/11/18 06:59 06:59 06:59 Intake Total 369 Balance 369 Weight 81.647 kg - Lochia Lochia Amount: Small 10-25 ml Lochia Color: Rubra/Red - Abdomen Description: Soft, Round Hernia Present: No Fundal Description: Firm Fundal Height: u/u - u/2 Objective-Diagnostic Laboratory: 02/10/18 07:04 02/10/18 02/10/18 07:04 07:04 WBC 13.1 H RBC 3.76 Hgb 9.6 L Hct 29.7 L MCV 79 L MCH 25.6 L MCHC 32.4 RDW 16.3 H Plt Count 190 Blood Type A NEGATIVE Assessment and Plan(PN) - Assessment and Plan (1) Vaginal delivery Is this a current diagnosis for this admission?: Yes (2) Gestational diabetes mellitus in childbirth, insulin controlled Is this a current diagnosis for this admission?: Yes (3) Intrauterine growth restriction (IUGR) affecting care of mother Qualifiers: Fetus number: single or unspecified fetus Is this a current diagnosis for this admission?: Yes - Time Spent with Patient Time with patient: Less than 15 minutes Medications reviewed and adjusted accordingly: Yes - Disposition Anticipated Discharge: Home Within: within 24 hours
[2018-02-11] MEDS: FAMOTIDINE 20 MG TABLET PO SCH ×2 (00:53→09:23)
[2018-02-11] MEDS: LEVOTHYROXINE SODIUM 0.05 MG TABLET PO SCH (06:10)
[2018-02-11] MEDS: PRENATAL VITAMIN W DHA CAPSULE PO SCH (09:24)
[2018-02-11] MEDS: SENNOSIDES/DOCUSATE 8.6-50 MG 1 EACH TABLET PO SCH (09:24)
[2018-02-11] MEDS: FERROUS SULFATE 325 MG TABLET PO SCH (09:24)
[2018-02-11] MEDS: DOCUSATE SODIUM 100 MG CAPSULE PO SCH (09:24)
--- NOTE | 2018-02-11 11:49 | PDOC PROGRESS REPORT ---
Subjective-OB Progress Note for:: 02/11/18 Subjective: Doing well, ready to go home, voiding, eating well Physical Exam (OB) Vital Signs: Temp Pulse Resp BP Pulse Ox 98.8 F 76 18 137/91 H 100 02/11/18 09:07 02/11/18 09:07 02/11/18 09:07 02/11/18 09:07 02/11/18 09:07 Intake & Output 02/10/18 02/11/18 02/12/18 06:59 06:59 06:59 Intake Total 300 Balance 300 Weight 81.647 kg - Lochia Lochia Amount: Scant < 10 ml Lochia Color: Rubra/Red - Abdomen Description: Soft Hernia Present: No Fundal Description: Firm, Midline Fundal Height: u/u - u/2 Objective-Diagnostic Laboratory: 02/10/18 07:04 02/10/18 07:04 Blood Type A NEGATIVE Assessment and Plan(PN) - Assessment and Plan (1) Anemia Qualifiers: Anemia type: iron deficiency Is this a current diagnosis for this admission?: Yes (2) Vaginal delivery Is this a current diagnosis for this admission?: Yes (3) Intrauterine growth restriction (IUGR) affecting care of mother Qualifiers: Fetus number: single or unspecified fetus Trimester: third trimester Qualified Code(s): O36.5930 - Maternal care for other known or suspected poor growth, third trimester, not applicable or unspecified Is this a current diagnosis for this admission?: Yes (4) Gestational diabetes mellitus in childbirth, insulin controlled Is this a current diagnosis for this admission?: Yes - Time Spent with Patient Time with patient: Less than 15 minutes Medications reviewed and adjusted accordingly: Yes - Disposition Anticipated Discharge: Home Within: Other - home today
--- NOTE | 2018-02-11 11:52 | PDOC DISCHARGE SUMMARY ---
Final Diagnosis Discharge Date: 02/11/18 - Final Diagnosis (1) Anemia Is this a current diagnosis for this admission?: Yes (2) Vaginal delivery Is this a current diagnosis for this admission?: Yes (3) Intrauterine growth restriction (IUGR) affecting care of mother Is this a current diagnosis for this admission?: Yes Discharge Data - Discharge Medication Home Medications: Esomeprazole Magnesium [Nexium] 1 tab PO DAILY 01/04/18 Levothyroxine Sodium [Synthroid 0.05 mg Tablet] 0.05 mg PO Q6AM tablet Gestational Age: 37.6 Reason(s) for Admission: Induction of Labor, Gestional Diabetes, Advanced Maternal Age Admission Note: IUGR Procedures: NST, Ultrasound Intrapartum Procedure(s): Spontaneous Vaginal Delivery - [place] Data Baby 1 Female at 1 minute: 9 at 5 minutes: 9 Weight: 2.268 kg Home with Mother: Yes Complications: No - Diagnosis Test Laboratory: Temp Pulse Resp BP Pulse Ox 98.8 F 76 18 137/91 H 100 02/11/18 11:48 02/11/18 11:48 02/11/18 11:48 02/11/18 09:07 02/11/18 11:48 02/08/18 02/08/18 02/10/18 19:17 19:40 07:04 RBC 3.90 3.76 Hgb 10.0 L 9.6 L Hct 30.5 L 29.7 L Urine Opiates Screen NEGATIVE - Discharge information/Instructions Discharge Activity: Activity As Tolerated, No Lifting Over 10 Pounds, Pelvic Rest, No tub bath Discharge Diet: As Tolerated, Regular Disposition: HOME, SELF-CARE Follow up with: [facility] in: 1, Weeks
[2018-02-11 14:02] VITALS: BP 135/87
== END 2018-02-11 14:30 | disposition home or self-care (01) | DRG 775 ==
LOC: LR 18:58 → 2S 02-09 20:32
PROVIDERS: ADMIT Student in an Organized Health Care Education/Training Program; ATTEND Student in an Organized Health Care Education/Training Program
PROC: 4A1HXCZ Monitoring of Products of Conception, Cardiac Rate, External Approach (ICD-10-PCS; 2018-02-08)
PROC: 10E0XZZ Delivery of Products of Conception, External Approach (ICD-10-PCS; principal; 2018-02-09)
PROC: 3E033VJ Introduction of Other Hormone into Peripheral Vein, Percutaneous Approach (ICD-10-PCS; 2018-02-09)
PROC: 3E0P7VZ Introduction of Hormone into Female Reproductive, Via Natural or Artificial Opening (ICD-10-PCS; 2018-02-09)
PROC: 3E0234Z Introduction of Serum, Toxoid and Vaccine into Muscle, Percutaneous Approach (ICD-10-PCS; 2018-02-10)
DX: O24.424 Gestational diabetes mellitus in childbirth, insulin controlled (principal); O26.893 Other specified pregnancy related conditions, third trimester; O99.02 Anemia complicating childbirth; D50.9 Iron deficiency anemia, unspecified; O36.5930 Maternal care for other known or suspected poor fetal growth, third trimester, not applicable or unspecified; O99.284 Endocrine, nutritional and metabolic diseases complicating childbirth; E03.9 Hypothyroidism, unspecified; O99.334 Smoking (tobacco) complicating childbirth; O69.81X0 Labor and delivery complicated by cord around neck, without compression, not applicable or unspecified; Z79.4 Long term (current) use of insulin; Z67.11 Type A blood, Rh negative; Z88.2 Allergy status to sulfonamides; Z88.6 Allergy status to analgesic agent; Z91.040 Latex allergy status; Z3A.37 37 weeks gestation of pregnancy; Z37.0 Single live birth
CPT/HCPCS: 36415; 80307; 82962; 85027; 85461; 86592; 86850; 86900; 86901; 88307; 94760; J1815; J2370; J2590; J2790; J3010; J3490

== ENCOUNTER 2018-04-20 05:22 | Day surgery (SDC) | payer MEDICAID ==
[2018-04-19 12:43] LABS: APPEARANCE,URINE CLEAR; BILIRUBIN,URINE NEGATIVE (NEGATIVE); COLOR,URINE STRAW; GLUCOSE, URINE NEGATIVE (NEGATIVE); KETONES,URINE NEGATIVE (NEGATIVE); LEUKOCYTE ESTERASE,URINE TRACE (NEGATIVE); NITRITE,URINE NEGATIVE (NEGATIVE); PROTEIN,URINE NEGATIVE (NEGATIVE); URINE SPECIFIC GRAVITY 1.008; UROBILINOGEN,URINE NEGATIVE mg/dL (<2.0)
[2018-04-19 12:46] LABS: HEMATOCRIT 37.1 % (36.0-47.0); HEMOGLOBIN 12.2 g/dL (12.0-15.5); MEAN CORPUSCULAR HEMOGLOBIN 25.8 pg (27.0-33.4); MEAN CORPUSCULAR HGB CONC 32.8 g/dL (32.0-36.0); MEAN CORPUSCULAR VOLUME 79 fl (80-97); PLATELET COUNT 240 10^3/uL (150-450); RED BLOOD COUNT 4.71 10^6/uL (3.72-5.28); RED CELL DISTRIBUTION WIDTH 20.8 % (11.5-14.0); WHITE BLOOD COUNT 8.8 10^3/uL (4.0-10.5)
[2018-04-20] MEDS ORDERED: LIDOCAINE 2% INJ-PF (20 MG/ML) 10 ML AMPUL ONE (06:21)
[2018-04-20] MEDS ORDERED: MIDAZOLAM 2 MG/2 ML INJ ONE (06:22)
[2018-04-20] MEDS ORDERED: FENTANYL CITRATE INJ/PF 100 MCG/2 ML AMPUL ONE (06:22)
[2018-04-20] MEDS ORDERED: DEXAMETHASONE SOD PHOSPHATE INJ 4 MG/1 ML VIAL ONE (06:22)
[2018-04-20] MEDS ORDERED: ONDANSETRON HCL INJ/PF 4 MG/2 ML SDV ONE (06:22)
[2018-04-20] MEDS ORDERED: PROPOFOL INJ 200 MG/20 ML VIAL IV ONE (06:23)
[2018-04-20] MEDS ORDERED: ACETAMINOPHEN 1,000 MG/100 ML RTUPB IV ONE (06:23)
[2018-04-20] MEDS ORDERED: PROMETHAZINE HCL INJ 25 MG/1 ML VIAL IV PRN ×2 (07:56)
[2018-04-20] MEDS ORDERED: MORPHINE SULFATE 10 MG/ML INJ IV PRN (07:56)
[2018-04-20] MEDS ORDERED: FENTANYL CITRATE INJ/PF 100 MCG/2 ML AMPUL IV PRN ×3 (07:56)
[2018-04-20] MEDS ORDERED: DIPHENHYDRAMINE HCL 50 MG/ML VIAL IV PRN (07:56)
[2018-04-20] MEDS ORDERED: ONDANSETRON HCL INJ/PF 4 MG/2 ML SDV IV PRN (07:56)
[2018-04-20] MEDS ORDERED: MEPERIDINE HCL/PF INJ 25 MG/1 ML DISP.SYRIN IV PRN (07:56)
[2018-04-20] MEDS ORDERED: IBUPROFEN 800 MG TABLET PO PRN (08:26)
[2018-04-20] MEDS ORDERED: RINGERS SOLUTION,LACTATED 1,000 ML IV PRN (08:26)
[2018-04-20] MEDS ORDERED: OXYCODONE-ACETAMINOPHEN 5-325 MG TABLET PO PRN ×2 (08:26)
[2018-04-20] MEDS ORDERED: KETOROLAC TROMETHAMINE INJ/PF 30 MG/1 ML SDV IV PRN (08:26)
[2018-04-20] MEDS ORDERED: KETOROLAC TROMETHAMINE INJ/PF 30 MG/1 ML SDV ONE (08:30)
[2018-04-20] MEDS: FENTANYL CITRATE INJ/PF 100 MCG/2 ML AMPUL ONE ×3 (08:32→08:38)
--- NOTE | 2018-04-20 08:32 | Operative Report ---
Operative Report DATE OF SURGERY: 04/20/18 PREOPERATIVE DIAGNOSIS: Patient desires tubal ligation POSTOPERATIVE DIAGNOSIS: Same OPERATION: Laparoscopic bilateral tubal fulguration using bipolar cautery SURGEON: SERGIO WHITE ANESTHESIA: GA TISSUE REMOVED OR ALTERED: Fallopian tubes COMPLICATIONS: None ESTIMATED BLOOD LOSS: 10 cc INTRAOPERATIVE FINDINGS: Normal uterus tubes and ovaries PROCEDURE: Patient was taken the OR and placed in supine position. General anesthesia was induced. She is placed in dorsolithotomy position using Bobby stirrups. Her perineum vagina and abdomen were prepared and draped in sterile fashion. A sponge stick was placed in the vagina for manipulation of the uterus. An incision was made at the umbilicus natural umbilical defect was identified and dilated with Ana Maria clamp. This allowed a blunt port to be placed. Laparoscopy confirmed appropriate placement. The abdomen was insufflated with CO2 gas. View of the pelvis was good. Each fallopian tube was identified and followed out to its fimbriated end and then cauterized with bipolar cautery starting at the uterine cornu and moving 5 bites distally. At the end of the case the gas was allowed to escape from the abdomen. The scope and port were removed in unison. The fascia at the umbilicus was closed with a 2-0 Vicryl stitch and skin closed with a 4-0 undyed Vicryl stitch. The sponge stick was removed from the vagina. She was extubated in the OR. The patient was taken to recovery room in stable condition.
[2018-04-20] MEDS ORDERED: GLYCOPYRROLATE 1 MG/5 ML SYRINGE ONE (10:43)
[2018-04-20] MEDS ORDERED: VECURONIUM BROMIDE INJ 10 MG VIAL IV ONE (10:43)
[2018-04-20] MEDS ORDERED: NEOSTIGMINE METHYLSULFATE 10 MG/10 ML VIAL ONE (10:43)
[2018-04-20] MEDS ORDERED: SUCCINYLCHOLINE CHLORIDE INJ 200 MG/10 ML VIAL ONE (10:43)
[2018-04-20 11:09] VITALS: BP 139/84
== END 2018-04-20 10:20 | disposition home or self-care (01) ==
LOC: OROUT 05:22
PROVIDERS: ATTEND Obstetrics & Gynecology
DX: Z30.2 Encounter for sterilization (principal); F17.210 Nicotine dependence, cigarettes, uncomplicated; E07.9 Disorder of thyroid, unspecified; D64.9 Anemia, unspecified; M19.049 Primary osteoarthritis, unspecified hand; Z79.899 Other long term (current) drug therapy; Z88.2 Allergy status to sulfonamides; Z88.6 Allergy status to analgesic agent; Z91.040 Latex allergy status
CPT/HCPCS: 36415; 85027; 81005; 81025; 58670; J2250; J1100; J3010; J3490 ×3; J1885; J0330; J2405; J2704; J0131

== ENCOUNTER 2018-07-01 18:28 | Emergency (ER) | payer SELFPAY ==
--- NOTE | 2018-07-01 21:07 | ER Document Report ---
ED Medical Screen (RME) - General Chief Complaint: Nausea/Vomiting Stated Complaint: NAUSEA, ABDOMINAL PAIN Time Seen by Provider: 07/01/18 20:58 Notes: Patient is a 37-year-old female who presents to the emergency department with nausea and abdominal cramping. Her cramping is in her lower abdomen. She states that she has had irregular vaginal bleeding. She only has about 4 days in between bleeding. Since she had her daughter back in January. She had a tubal ligation in February. She states that she has not had any vaginal bleeding today, but her nausea and abdominal cramping brought her here to emergency department. TRAVEL OUTSIDE OF THE [place] IN LAST 30 DAYS: No - Related Data Allergies/Adverse Reactions: ibuprofen [From Motrin] Allergy (Severe, Verified 07/01/18 18:36) dizzy Sulfa (Sulfonamide Antibiotics) Allergy (Unknown, Verified 07/01/18 18:36) as child latex Adverse Reaction (Mild, Verified 07/01/18 18:36) Past Medical History - Social History Chew tobacco use (# tins/day): No Frequency of alcohol use: Social Drug Abuse: None - Past Medical History Cardiac Medical History: Denies: Hx Coronary Artery Disease, Hx Heart Attack, Hx Hypertension Pulmonary Medical History: Denies: Hx Asthma, Hx Bronchitis, Hx COPD, Hx Pneumonia Neurological Medical History: Reports: Hx Migraine. Denies: Hx Cerebrovascular Accident, Hx Seizures Renal/ Medical History: Reports: Hx Ovarian Cysts. Denies: Hx Peritoneal Dialysis Musculoskeltal Medical History: Reports Hx Arthritis - hands Past Surgical History: Reports: Hx Orthopedic Surgery - Immunizations Immunizations up to date: Yes Hx Diphtheria, Pertussis, Tetanus Vaccination: Yes History of Influenza Vaccine for 03/2017 - 08/2017 Season: Refused Physical Exam - Vital signs Vitals: Temp Pulse Resp BP Pulse Ox 98.7 F 102 H 14 160/112 H 98 07/01/18 18:39 07/01/18 18:39 07/01/18 18:39 07/01/18 18:39 07/01/18 18:39 - Abdominal Tenderness: Tender - Lower abdomen Course - Vital Signs Vital signs: Temp Pulse Resp BP Pulse Ox 98.7 F 102 H 14 160/112 H 98 07/01/18 18:39 07/01/18 18:39 07/01/18 18:39 07/01/18 18:39 07/01/18 18:39 Doctor's Discharge - Discharge Referrals: SKY MATAMOROS CIRC[facility] DISTRIBUTOR-C [Primary Care Provider] - Follow up as needed
[2018-07-01] MEDS ORDERED: ONDANSETRON 4 MG TAB.RAPDIS PO ONE (21:08)
[2018-07-01 21:23] LABS: ABSOLUTE BASOPHILS # (AUTO) 0.1 10^3/uL (0.0-0.2); ABSOLUTE EOSINOPHILS # (AUTO) 0.7 10^3/uL (0.0-0.6); ABSOLUTE LYMPHOCYTES (AUTO) 2.5 10^3/uL (0.5-4.7); ABSOLUTE MONOCYTES (AUTO) 0.7 10^3/uL (0.1-1.4); ABSOLUTE NEUT (AUTO) 9.1 10^3/uL (1.7-8.2); BASOPHILS % (AUTO) 0.5 % (0-2); EOSINOPHILS % (AUTO) 5.7 % (0-6); HEMATOCRIT 37.7 % (36.0-47.0); HEMOGLOBIN 12.4 g/dL (12.0-15.5); LYMPHOCYTES % (AUTO) 18.8 % (13-45); MEAN CORPUSCULAR HEMOGLOBIN 26.4 pg (27.0-33.4); MEAN CORPUSCULAR HGB CONC 32.8 g/dL (32.0-36.0); MEAN CORPUSCULAR VOLUME 81 fl (80-97); MONOCYTES % (AUTO) 5.3 % (3-13); PLATELET COUNT 274 10^3/uL (150-450); RED BLOOD COUNT 4.67 10^6/uL (3.72-5.28); RED CELL DISTRIBUTION WIDTH 14.9 % (11.5-14.0); SEGMENTED NEUTROPHILS % (AUTO) 69.7 % (42-78); TOTAL CELLS COUNTED % (AUTO) 100 %; WHITE BLOOD COUNT 13.1 10^3/uL (4.0-10.5)
[2018-07-01 21:34] LABS: APPEARANCE,URINE SLIGHTLY-CLOUDY; BILIRUBIN,URINE NEGATIVE (NEGATIVE); COLOR,URINE STRAW; GLUCOSE, URINE NEGATIVE (NEGATIVE); KETONES,URINE NEGATIVE (NEGATIVE); LEUKOCYTE ESTERASE,URINE TRACE (NEGATIVE); NITRITE,URINE NEGATIVE (NEGATIVE); PROTEIN,URINE NEGATIVE (NEGATIVE); URINE SPECIFIC GRAVITY 1.006; UROBILINOGEN,URINE NEGATIVE mg/dL (<2.0)
[2018-07-01 21:38] LABS: ALANINE AMINOTRANSFERASE 26 U/L (9-52); ALBUMIN 4.6 g/dL (3.5-5.0); ALKALINE PHOSPHATASE 100 U/L (38-126); ANION GAP 10 (5-19); ASPARTATE AMINO TRANSFERASE 29 U/L (14-36); BILIRUBIN,DIRECT 0.2 mg/dL (0.0-0.4); BILIRUBIN,TOTAL 0.3 mg/dL (0.2-1.3); BLOOD UREA NITROGEN 11 mg/dL (7-20); CALCIUM 10.1 mg/dL (8.4-10.2); CARBON DIOXIDE 27 mmol/L (22-30); CHLORIDE 101 mmol/L (98-107); GLUCOSE 111 mg/dL (75-110); LIPASE 101.3 U/L (23-300); SODIUM 137.8 mmol/L (137-145); TOTAL PROTEIN 7.8 g/dL (6.3-8.2)
--- NOTE | 2018-07-01 22:30 | ER Document Report ---
ED General - General Chief Complaint: Nausea/Vomiting Stated Complaint: NAUSEA, ABDOMINAL PAIN Time Seen by Provider: 07/01/18 20:58 TRAVEL OUTSIDE OF THE [place] IN LAST 30 DAYS: No - HPI Notes: Patient is a 37-year-old female that presents to the emergency department for chief complaint of abdominal pain and vomiting. Patient reports epigastric abdominal pain that began today. she states it feels like "a rock" sitting in her stomach. The pain is intermittent and worse when she is vomiting. She denies any aggravating or relieving factors. She has been able to drink liquids. She denies any diarrhea. She does endorse some lower abdominal cramping as well. She has a history of tubal ligation and irregular menses. She denies any vaginal bleeding. Patient denies fevers, chills, chest pain and shortness of breath. Past Medical History: Migraines Past Surgical History: Tubal ligation Social History: Daily tobacco, alcoholic beverage 3-4 times a week, denies drug use Family History: Reviewed and noncontributory for presenting illness Allergies: Reviewed, see documented allergy list. REVIEW OF SYSTEMS: CONSTITUTIONAL : No fever No chills No diaphoresis No recent illness EENT: No vision changes No congestion No sore throat CARDIOVASCULAR: No chest pain No palpitations RESPIRATORY: No shortness of breath No cough No difficulty breathing GASTROINTESTINAL: abdominal pain nausea vomiting No diarrhea GENITOURINARY: No dysuria No hematuria No difficulty urinating MUSCULOSKELETAL: No back pain No leg pain No arm pain SKIN: No rashes No lesions LYMPHATIC: No swollen, enlarged glands. NEUROLOGICAL: No lightheadedness No headache No weakness No paresthesias PSYCHIATRIC: No anxiety No depression PHYSICAL EXAMINATION: Vital signs reviewed, nursing noted reviewed. GENERAL: Well-appearing, well-nourished and in no acute distress. HEAD: Atraumatic, normocephalic. EYES: Eyes appear normal, extraocular movements intact, sclera anicteric, conjunctiva are normal. ENT: nares patent, oropharynx clear without exudates. Mildly dry mucous membranes. NECK: Normal range of motion, supple without lymphadenopathy LUNGS: Breath sounds clear to auscultation bilaterally and equal. No wheezes rales or rhonchi. HEART: Tachycardic and regular rhythm without murmurs ABDOMEN: Soft, nontender, normoactive bowel sounds. No rebound, guarding, or rigidity. No masses appreciated. EXTREMITIES: Nontender, good range of motion, no pitting or edema. NEUROLOGICAL: No focal neurological deficits. Moves all extremities spontaneously Motor and sensory grossly intact on exam. PSYCH: Normal mood, normal affect. SKIN: Warm, Dry, normal turgor, no rashes or lesions noted on exposed skin - Related Data Allergies/Adverse Reactions: ibuprofen [From Motrin] Allergy (Severe, Verified 07/01/18 18:36) dizzy Sulfa (Sulfonamide Antibiotics) Allergy (Unknown, Verified 07/01/18 18:36) as child latex Adverse Reaction (Mild, Verified 07/01/18 18:36) Past Medical History - Social History Smoking Status: Current Every Day Smoker Chew tobacco use (# tins/day): No Frequency of alcohol use: Social Drug Abuse: None Family History: Reviewed & Not Pertinent Patient has suicidal ideation: No Patient has homicidal ideation: No - Past Medical History Cardiac Medical History: Denies: Hx Coronary Artery Disease, Hx Heart Attack, Hx Hypertension Pulmonary Medical History: Denies: Hx Asthma, Hx Bronchitis, Hx COPD, Hx Pneumonia Neurological Medical History: Reports: Hx Migraine. Denies: Hx Cerebrovascular Accident, Hx Seizures Renal/ Medical History: Reports: Hx Ovarian Cysts. Denies: Hx Peritoneal Dialysis Musculoskeletal Medical History: Reports Hx Arthritis - hands Past Surgical History: Reports: Hx Orthopedic Surgery - Immunizations Immunizations up to date: Yes Hx Diphtheria, Pertussis, Tetanus Vaccination: Yes Physical Exam - Vital signs Vitals: Temp Pulse Resp BP Pulse Ox 98.7 F 102 H 14 160/112 H 98 07/01/18 18:39 07/01/18 18:39 07/01/18 18:39 07/01/18 18:39 07/01/18 18:39 Course - Re-evaluation Re-evalutation: 07/01/18 22:27 Vitals reviewed. Nursing notes reviewed. Patient given Zofran and had significant symptomatic improvement. She states she is feeling much better. Her lab work is unremarkable. Urinalysis negative for or infection. Patient will be given a prescription for Zofran to take at home. Her abdominal exam is benign with no peritoneal signs and I do not feel further abdominal imaging is indicated. Patient will be referred to the [facility] for follow-up. She is in agreement with this plan. She will return for new or worsening symptoms. Laboratory 07/01/18 07/01/18 07/01/18 21:10 21:10 21:10 WBC 13.1 H RBC 4.67 Hgb 12.4 Hct 37.7 MCV 81 MCH 26.4 L MCHC 32.8 RDW 14.9 H Plt Count 274 Seg Neutrophils % 69.7 Lymphocytes % 18.8 Monocytes % 5.3 Eosinophils % 5.7 Basophils % 0.5 Absolute Neutrophils 9.1 H Absolute Lymphocytes 2.5 Absolute Monocytes 0.7 Absolute Eosinophils 0.7 H Absolute Basophils 0.1 Sodium 137.8 Potassium 4.0 Chloride 101 Carbon Dioxide 27 Anion Gap 10 BUN 11 Creatinine 0.91 Est GFR ( Amer) > 60 Est GFR (Non-Af Amer) > 60 Glucose 111 H Calcium 10.1 Total Bilirubin 0.3 Direct Bilirubin 0.2 Neonat Total Bilirubin Not Reportable Neonat Direct Bilirubin Not Reportable Neonat Indirect Bili Not Reportable AST 29 ALT 26 Alkaline Phosphatase 100 Total Protein 7.8 Albumin 4.6 Lipase 101.3 Serum HCG, Qual NEGATIVE Urine Color Urine Appearance Urine pH Ur Specific Stir[place] Urine Protein Urine Glucose (UA) Urine Ketones Urine Blood Urine Nitrite Urine Bilirubin Urine Urobilinogen Ur Leukocyte Esterase Urine WBC (Auto) Urine RBC (Auto) Squamous Epi Cells Auto Urine Mucus (Auto) Urine Ascorbic Acid 07/01/18 21:10 WBC RBC Hgb Hct MCV MCH MCHC RDW Plt Count Seg Neutrophils % Lymphocytes % Monocytes % Eosinophils % Basophils % Absolute Neutrophils Absolute Lymphocytes Absolute Monocytes Absolute Eosinophils Absolute Basophils Sodium Potassium Chloride Carbon Dioxide Anion Gap BUN Creatinine Est GFR ( Amer) Est GFR (Non-Af Amer) Glucose Calcium Total Bilirubin Direct Bilirubin Neonat Total Bilirubin Neonat Direct Bilirubin Neonat Indirect Bili AST ALT Alkaline Phosphatase Total Protein Albumin Lipase Serum HCG, Qual Urine Color STRAW Urine Appearance SLIGHTLY-CLOUDY Urine pH 6.0 Ur Specific Stirling 1.006 Urine Protein NEGATIVE Urine Glucose (UA) NEGATIVE Urine Ketones NEGATIVE Urine Blood NEGATIVE Urine Nitrite NEGATIVE Urine Bilirubin NEGATIVE Urine Urobilinogen NEGATIVE Ur Leukocyte Esterase TRACE H Urine WBC (Auto) 2 Urine RBC (Auto) 0 Squamous Epi Cells Auto 7 Urine Mucus (Auto) RARE Urine Ascorbic Acid NEGATIVE - Vital Signs Vital signs: Temp Pulse Resp BP Pulse Ox 98.7 F 102 H 14 160/112 H 98 07/01/18 18:39 07/01/18 18:39 07/01/18 18:39 07/01/18 18:39 07/01/18 18:39 - Laboratory Result Diagrams: 07/01/18 21:10 07/01/18 21:10 Laboratory results interpreted by me: 07/01/18 07/01/18 07/01/18 21:10 21:10 21:10 WBC 13.1 H MCH 26.4 L RDW 14.9 H Absolute Neutrophils 9.1 H Absolute Eosinophils 0.7 H Glucose 111 H Ur Leukocyte Esterase TRACE H Discharge - Discharge Clinical Impression: Elevated blood pressure reading Abdominal pain Qualifiers: Abdominal location: unspecified location Qualified Code(s): R10.9 - Unspecified abdominal pain Condition: Stable Disposition: HOME, SELF-CARE Instructions: Abdominal Pain ([facility]) Additional Instructions: Please return to the emergency department if you have any worsening, or concern of your symptoms. Please return to the emergency department if you develop chest pain, difficulty breathing, severe abdominal pain, or ongoing vomiting. Please follow-up with your primary care physician in 2-3 days and any other recommended physicians. If prescribed, take all medications as directed. If you have any questions or concerns do not hesitate to return the emergency department for evaluation. You had an elevated blood pressure reading today. To have hypertension diagnosed and need to be seen in the primary care physician's office. Please call the [facility] for a blood pressure recheck in the next few days. Prescriptions: Ondansetron [Zofran Odt 4 mg Tablet] 1 tab PO Q4H PRN #15 tab.rapdis PRN Reason: For Nausea/Vomiting Referrals: SKY MATAMOROS NP-C [NURSE PRACTITIONER] - Follow up as needed [facility] [Provider Group] - Follow up in 3-5 days
[2018-07-01 22:49] VITALS: BP 139/97
== END 2018-07-01 22:49 | disposition home or self-care (01) ==
LOC: ER 18:28
DX: R10.9 Unspecified abdominal pain (principal); R03.0 Elevated blood-pressure reading, without diagnosis of hypertension; F17.210 Nicotine dependence, cigarettes, uncomplicated; Z98.51 Tubal ligation status; Z91.040 Latex allergy status; Z88.6 Allergy status to analgesic agent; Z88.2 Allergy status to sulfonamides
CPT/HCPCS: 99284; 36415; 83690; 84703; 85025; 80053; 81001; S0119

== ENCOUNTER → 2020-03-01 | Outpatient (CLI) | payer MEDICAID ==
--- NOTE | 2020-03-01 13:37 | RADIOLOGY REPORT (SQ) ---
EXAM DESCRIPTION: ANKLE LEFT AP/LATERAL; FOOT LEFT 2 VIEWS IMAGES COMPLETED DATE/TIME: 03/01/2020 1:08 pm REASON FOR STUDY: PAIN IN LEFT ANKLE AND JOINTS OF LEFT FOOT M54.41 LUMBAGO WITH SCIATICA, RIGHT SI DE M25.572 PAIN IN LEFT ANKLE AND JOINTS OF LEFT FOOT COMPARISON: None. NUMBER OF VIEWS: Four views. TECHNIQUE: AP and lateral radiographic images acquired of the left ankle and left foot. LIMITATIONS: None. FINDINGS: MINERALIZATION: Normal. BONES: No acute fracture or dislocation. No worrisome bone lesions. JOINTS: No effusions. SOFT TISSUES: No soft tissue swelling. No foreign body. OTHER: No other significant finding. IMPRESSION: No fracture. TECHNICAL DOCUMENTATION: JOB ID: [id number] 2010 [employer]- All Rights Reserved Reading location - IP/workstation name: [email or web address]
--- NOTE | 2020-03-01 13:37 | RADIOLOGY REPORT (SQ) ---
EXAM DESCRIPTION: ANKLE LEFT AP/LATERAL; FOOT LEFT 2 VIEWS IMAGES COMPLETED DATE/TIME: 03/01/2020 1:08 pm REASON FOR STUDY: PAIN IN LEFT ANKLE AND JOINTS OF LEFT FOOT M54.41 LUMBAGO WITH SCIATICA, RIGHT SI DE M25.572 PAIN IN LEFT ANKLE AND JOINTS OF LEFT FOOT COMPARISON: None. NUMBER OF VIEWS: Four views. TECHNIQUE: AP and lateral radiographic images acquired of the left ankle and left foot. LIMITATIONS: None. FINDINGS: MINERALIZATION: Normal. BONES: No acute fracture or dislocation. No worrisome bone lesions. JOINTS: No effusions. SOFT TISSUES: No soft tissue swelling. No foreign body. OTHER: No other significant finding. IMPRESSION: No fracture. TECHNICAL DOCUMENTATION: JOB ID: [id number] 2010 [employer]- All Rights Reserved Reading location - IP/workstation name: [email or web address]
--- NOTE | 2020-03-01 13:44 | RADIOLOGY REPORT (SQ) ---
EXAM DESCRIPTION: SACRUM AND COCCYX IMAGES COMPLETED DATE/TIME: 03/01/2020 1:08 pm REASON FOR STUDY: LUMBAGO WITH SCIATICA, RIGHT SIDE M54.41 LUMBAGO WITH SCIATICA, RIGHT SIDE M25.57 2 PAIN IN LEFT ANKLE AND JOINTS OF LEFT FOOT COMPARISON: None. NUMBER OF VIEWS: Three views. TECHNIQUE: AP, lateral, and tilt views of the sacrum and coccyx. LIMITATIONS: None. FINDINGS: MINERALIZATION: Normal. BONES: No acute fracture or dislocation. No worrisome bone lesions. SOFT TISSUES: No soft tissue swelling. No foreign body. OTHER: No other significant finding. IMPRESSION: NEGATIVE STUDY OF THE SACRUM AND COCCYX. TECHNICAL DOCUMENTATION: JOB ID: [id number] 2010 [employer]- All Rights Reserved Reading location - IP/workstation name: [email or web address]
== END ==
LOC: OD 12:13
PROVIDERS: ATTEND Nurse Practitioner Family
DX: M54.41 Lumbago with sciatica, right side (principal); M25.572 Pain in left ankle and joints of left foot
CPT/HCPCS: 72220